=== PATIENT | female | born 1980 | race Two or more races ===

== ENCOUNTER 2019-09-15 09:00 | Inpatient (IN) | payer OTHER ==
[~2019-09-15] VITALS: Ht 162.6 cm; Wt 45.4 kg
[2019-09-22] MEDS ORDERED: HYDREA500 M1 PO (10:36)
== END 2019-09-24 16:07 | disposition home or self-care (01) | DRG 583 ==
LOC: SURG 09-23 05:20 → O/R 09-23 05:20 → SURH 09-23 07:00 → SURG 09-23 14:23
PROVIDERS: Plastic Surgery; ADMIT Surgery
PROC: 0HB5XZX Excision of Chest Skin, External Approach, Diagnostic (ICD-10-PCS; 2019-09-23)
PROC: 0HTV0ZZ Resection of Bilateral Breast, Open Approach (ICD-10-PCS; principal; 2019-09-23 07:00)
PROC: 0HUV0KZ Supplement Bilateral Breast with Nonautologous Tissue Substitute, Open Approach (ICD-10-PCS; 2019-09-23 07:00)
DX: C50.312 Malignant neoplasm of lower-inner quadrant of left female breast (principal); Z17.0 Estrogen receptor positive status [ER+]

== ENCOUNTER 2019-11-07 13:15 | Outpatient (CLI) | payer OTHER ==
[~2019-11-07 13:15] MED LIST: HYDREA500 M1 PO
== END 2019-11-07 13:33 | disposition home or self-care (01) ==
LOC: SONOGRAMA 13:15
DX: C50.411 Malignant neoplasm of upper-outer quadrant of right female breast (principal); N61.1 Abscess of the breast and nipple; N60.11 Diffuse cystic mastopathy of right breast; N60.12 Diffuse cystic mastopathy of left breast

== ENCOUNTER → 2019-12-26 | Outpatient (CLI) | payer OTHER | END | disposition home or self-care (01) | LOC: SONOGRAMA 11:40 | DX: N61.1 Abscess of the breast and nipple (principal) ==

== ENCOUNTER → 2020-03-09 | Outpatient (CLI) | payer OTHER | END | disposition home or self-care (01) | LOC: SONOGRAMA 12:18 | DX: N61.1 Abscess of the breast and nipple (principal) ==

== ENCOUNTER 2020-06-22 12:57 | Outpatient (CLI) | payer OTHER | END 2020-06-22 13:08 | disposition home or self-care (01) | LOC: SONOGRAMA 12:57 → MAMO-SONO 13:45 | PROVIDERS: ATTEND Surgery | DX: C50.411 Malignant neoplasm of upper-outer quadrant of right female breast (principal); N60.11 Diffuse cystic mastopathy of right breast; N60.12 Diffuse cystic mastopathy of left breast ==

== ENCOUNTER 2020-07-06 14:36 | Outpatient (CLI) | payer OTHER | END 2020-07-06 14:44 | disposition home or self-care (01) | LOC: SONOGRAMA 14:36 | PROVIDERS: ATTEND Surgery | DX: N61.1 Abscess of the breast and nipple (principal); C50.411 Malignant neoplasm of upper-outer quadrant of right female breast ==

== ENCOUNTER 2020-07-06 15:55 | Outpatient (CLI) | payer OTHER | END 2020-07-06 16:09 | disposition home or self-care (01) | LOC: LAB 15:55 | PROVIDERS: ATTEND General Practice | DX: Z20.6 Contact with and (suspected) exposure to human immunodeficiency virus [HIV] (principal); Z11.4 Encounter for screening for human immunodeficiency virus [HIV] ==

== ENCOUNTER 2020-09-21 13:06 | Outpatient (CLI) | payer OTHER | END 2020-09-21 13:21 | disposition home or self-care (01) | LOC: SONOGRAMA 13:06 → MAMO-SONO 13:15 → SONOGRAMA 13:21 | PROVIDERS: ATTEND Surgery | DX: N60.11 Diffuse cystic mastopathy of right breast (principal); N60.12 Diffuse cystic mastopathy of left breast ==

== ENCOUNTER → 2020-10-12 | Outpatient (CLI) | payer OTHER | END | disposition home or self-care (01) | LOC: NUCLEAR 09:00 | PROVIDERS: ATTEND Surgery | DX: I82.409 Acute embolism and thrombosis of unspecified deep veins of unspecified lower extremity (principal) ==

== ENCOUNTER → 2020-12-27 09:00 | Outpatient (CLI) | payer OTHER | END | disposition home or self-care (01) | LOC: MRI 12-21 12:45 | DX: D45 Polycythemia vera (principal) | CPT/HCPCS: 70553 ==

== ENCOUNTER 2021-12-17 09:49 | Outpatient (CLI) | payer OTHER | END 2021-12-17 10:10 | disposition home or self-care (01) | LOC: SONOGRAMA 09:49 | PROVIDERS: ATTEND Surgery | DX: N60.11 Diffuse cystic mastopathy of right breast (principal); N60.12 Diffuse cystic mastopathy of left breast; C50.412 Malignant neoplasm of upper-outer quadrant of left female breast ==